=== PATIENT | female | born 1965 | race Caucasian/White ===

== ENCOUNTER 2025-08-30 15:08 | Emergency (ER) | payer BC, OTHER ==
[~2025-08-30] VITALS: Ht 182.9 cm; Wt 72.6 kg
[2025-08-30 15:17] VITALS: TEMP 98
[2025-08-30] MEDS ORDERED: PANTOPRAZOLE 40 MG VIAL ONE (15:26)
[2025-08-30] MEDS: PANTOPRAZOLE 40 MG VIAL IV ONE (15:35)
[2025-08-30] MEDS: IV NS 0.9% 1,000 ML BAG IV ONE (15:35)
[2025-08-30 15:40] LABS: PLATELET COUNT (AUTO) 261 K/uL (150-450); RED BLOOD CELL COUNT(AUTO) 4.45 MIL/uL (4.0-5.2); RED CELL DISTRIBUTION WIDTH 13.3 % (11.5-15.0); WHITE BLOOD COUNT (AUTO) 6.4 K/uL (4.3-11.0)
[2025-08-30 15:49] LABS: CALCIUM, SERUM 8.1 mg/dL (8.5-10.1); CREATININE 0.6 mg/dL (0.6-1.3); SODIUM SERUM 140 mmol/L (136-145); UREA NITROGEN, BLOOD 16 mg/dL (7-18)
[2025-08-30 15:53] LABS: APPEARANCE,URINE CLEAR (CLEAR); BLOOD, URINE NEGATIVE Ery/uL (NEGATIVE); LEUKOCYTE ESTERASE ,URINE 2+ (NEGATIVE); NITRITE, URINE NEGATIVE (NEGATIVE); UGLUCOSE NEGATIVE (NEGATIVE)
[2025-08-30 16:04] LABS: INR 0.95 (0.91-1.10)
[2025-08-30 16:08] LABS: ADD URINE CULTURE YES
[2025-08-30] MEDS ORDERED: IOHEXOL-300 100 ML VIAL IV ONE (16:20)
[2025-08-30] MEDS ORDERED: CT SWABBABLE VALVE TRANS SET 1 EA INFUS.SET MC ONE (16:20)
[2025-08-30] MEDS ORDERED: IV NS 0.9% 250 ML IV ONE (16:20)
[2025-08-30] MEDS ORDERED: TELM40TA8 PO (17:17)
[2025-08-30] MEDS ORDERED: CEPH-570 PO (17:17)
[2025-08-30 18:00] VITALS: BP 145/89; O2SAT 96
== END 2025-08-30 18:00 | disposition home or self-care (01) ==
LOC: ER 15:10
DX: N39.0 Urinary tract infection, site not specified (principal); I10 Essential (primary) hypertension; R07.89 Other chest pain; Z79.899 Other long term (current) drug therapy
CPT/HCPCS: 99285; 71260; 96374; 71045; 96361; 93005; 74177; 85025; 80048; 87086; 85378; 81001; 36415; 84484; 85730; J7030; J7050; J2470; Q9967